=== PATIENT | female | born 1990 | race Two or more races ===

== ENCOUNTER 2023-09-08 16:30 | Emergency (ER) | payer OTHER ==
[~2023-09-08] VITALS: Ht 162.6 cm; Wt 62.1 kg
[2023-09-08 17:38] LABS: HEMATOCRIT 33.8 % (36.0-45.00); HEMOGLOBIN 11.4 g/dL (12.0-15.00); MEAN CELL VOLUME 81.6 fL (80.00-100.00); MEAN CORPUSCULAR HEMOGLOBIN 27.5 pg (27.00-32.0); MEAN CORPUSCULAR HGB CONC 33.7 g/dl (32.0-36.0); PLATELET COUNT 318 K/uL (150-450); RED BLOOD COUNT 4.14 M/uL (4.00-6.00); RED CELL DISTRIBUTION WIDTH 18.1 % (11.5-14.5)
[2023-09-08 18:04] LABS: CALCIUM 9.1 mg/dL (8.5-10.1); CREATININE SERUM 0.65 mg/dL (0.55-1.02); GFR 105.63; POTASSIUM 3.81 mEq/L (3.5-5.1)
== END 2023-09-08 19:47 | disposition home or self-care (01) ==
LOC: ER 16:30
PROVIDERS: Emergency Medicine
DX: R10.84 Generalized abdominal pain (principal)